=== PATIENT | male | born 1990 | race Hispanic/Latino ===

== ENCOUNTER 2023-08-27 12:54 | Day surgery (SDC) | payer SELFPAY ==
[2023-08-27] MEDS ORDERED: Ondansetron PF 4 MG/2 ML Vial ONE ×2 (15:08→15:25)
[2023-08-27 15:19] LABS: #Monocytes 1.7 thou/uL (0.11-0.59); %Basophils 0.2 % (0.0-1.0); %Eosinophils 0.1 % (0.0-10.0); %Lymphocytes 11.1 % (21.0-51.0); %Monocytes 11.1 % (0.0-10.0); %Neutrophils 77.2 % (42.0-75.0); Hematocrit 44.9 % (42.0-52.0); Hemoglobin 15.8 g/dL (14.0-18.0); Mean Corpuscular HGB CONC 35.2 g/dL (32.0-36.0); Mean Corpuscular Hemoglobin 28.5 pg (27.0-31.0); Mean Corpuscular Volume 80.9 fl (78.0-98.0); Mean Platelet Volume 9.8 fL (7.4-10.4); Platelet Count 242 10x3/uL (130-400); RBC Distribution Width 11.7 % (11.5-14.5); Red Blood Cell (RBC) Count 5.55 mill/uL (4.70-6.10); White Blood Cell (WBC) Count 15.6 10x3/uL (4.8-10.8)
[2023-08-27] MEDS ORDERED: Dexamethasone 20 MG/5 ML VIAL ONE (15:25)
[2023-08-27] MEDS ORDERED: Lidocaine 1% PF 5 ML VIAL ONE (15:25)
[2023-08-27] MEDS ORDERED: Dexmedetomidine 200 MCG/2 ML VIAL ONE (15:25)
[2023-08-27] MEDS ORDERED: PROPOFOL 40 ML ONE (15:26)
[2023-08-27 15:42] LABS: ALT (SGPT) 25 U/L (8-55); AST (SGOT) 14 U/L (5-34); Alkaline Phosphatase 68 U/L (40-110); Anion Gap 15 mmol/L (10-20); BUN (Urea Nitrogen) 17 mg/dL (8.9-20.6); Bilirubin, Total 0.9 mg/dL (0.2-1.2); Calc. Creatinine Clearance 0 mL/min (70-130); Calcium 9.1 mg/dL (7.8-10.44); Carbon Dioxide 25 mmol/L (22-29); Chloride 100 mmol/L (98-107); Estimated GFR 85; Globulin 3.5 g/dL (2.4-3.5); Glucose 92 mg/dL (70-105); Potassium 3.5 mmol/L (3.5-5.1); Protein, Total 7.5 g/dL (6.0-8.3); Sodium 136 mmol/L (136-145)
[2023-08-27] MEDS ORDERED: Sodium Chloride 0.9% 100 ML ONE (15:44)
[2023-08-27] MEDS ORDERED: CEFAZOLIN 2 GM VIAL ONE (15:44)
[2023-08-27] MEDS ORDERED: Sodium Chloride 0.9% 200 ML ONE (15:52)
[2023-08-27] MEDS ORDERED: Sodium Chloride 0.9% 250 ML 500 ML ONE (15:52)
[2023-08-27] MEDS ORDERED: HYDROmorphone 2 MG/ML VIAL ONE (16:00)
[2023-08-27] MEDS ORDERED: Bacitracin Zinc Ointment 30 gm TUBE ONE (16:16)
[2023-08-27] MEDS ORDERED: Bupivacaine 0.25% HCL 30 ML VIAL ONE (16:16)
[2023-08-27] MEDS ORDERED: Promethazine HCl 25 MG/ML VIAL IM PRN (16:27)
[2023-08-27] MEDS ORDERED: Ondansetron HCl/PF 4 MG/2 ML Vial IVP PRN (16:27)
[2023-08-27] MEDS ORDERED: HYDROmorphone 2 MG/ML VIAL SLOW IVP PRN (16:27)
[2023-08-27] MEDS ORDERED: Vancomycin 1 GM VIAL ONE (16:47)
[2023-08-27] MEDS ORDERED: Ketorolac Tromethamine 30 MG (1 mL) VIAL ONE (16:49)
[2023-08-27] MEDS ORDERED: HYDROcodone/Acetaminophen 5/325 mg Tablet ONE (18:22)
[2023-08-27] MEDS ORDERED: Tamsulosin HCl 0.4 MG CAP ONE (19:25)
== END 2023-08-27 20:05 | disposition home or self-care (01) ==
LOC: ERS 12:54 → SDC 16:12
PROVIDERS: ATTEND Urology
PROC: 0VTB0ZZ Resection of Left Testis, Open Approach (ICD-10-PCS; principal; 2023-08-27)
DX: N44.00 Torsion of testis, unspecified (principal)
CPT/HCPCS: 36415; 76870; 93976; 96374; J0665; J1100; J1170; J1885; J2405; J2704; J3370; J3490; J7050